=== PATIENT | male | born 1965 | race Caucasian/White ===

== ENCOUNTER 2022-05-02 19:21 | Emergency (ER) | payer OTHER ==
[2022-05-02 20:00] LABS: BASOPHIL 0.3 % (0-2); EOSINOPHIL 0.6 % (0-5); HCT 46.9 % (42.0-52.0); LYMPHOCYTE 22.8 % (15-48); MCH 30.9 pg (25.0-31.0); MCHC 34.1 g/dL (32.0-36.0); MCV 90.5 fL (78.0-100.0); MONOCYTE 7.8 % (0-12); MPV 8.5 fL (6.0-9.5); NEUTROPHIL 68.2 % (41-80); NRBC 0; PLT 228 K/uL (150-400); RBC 5.18 M/uL (4.70-6.00); RDW 13.6 % (11.5-14.0); WBC 6.4 K/uL (4.0-10.5)
[2022-05-02 20:05] LABS: INR 1.02 (0.9-1.2); PROTHROMBIN TIME 13.1 SECONDS (11.9-13.9); PTT 30.2 SECONDS (24.9-34.6)
[2022-05-02 20:09] LABS: ALBUMIN 3.8 g/dL (3.4-5.0); BILIRUBIN - TOTAL 0.4 mg/dL (0.2-1.0); BUN/CREAT RATIO (CALC) 10.4 RATIO; CREATININE 1.34 mg/dL (0.67-1.17); GLOBULIN (CALCULATION) 3.3 g/dL; POTASSIUM 4.3 mmol/L (3.5-5.1); TOTAL PROTEIN 7.1 g/dL (6.4-8.2)
[2022-05-02 21:03] LABS: CORONAVIRUS 2019 SARS-COV-2 NEGATIVE (NEGATIVE); INFLUENZA A NAA NEGATIVE (NEGATIVE)
[2022-05-02] MEDS ORDERED: NORCO 5-325 TA1 EACH PO (21:16)
[2022-05-02] MEDS ORDERED: ONDANSETRON ODT4 MG PO (21:16)
== END 2022-05-02 21:50 | disposition home or self-care (01) ==
LOC: FER 19:21
PROVIDERS: Emergency Medicine
DX: S82.852A Displaced trimalleolar fracture of left lower leg, initial encounter for closed fracture (principal); J45.909 Unspecified asthma, uncomplicated; F17.200 Nicotine dependence, unspecified, uncomplicated; X50.1XXA Overexertion from prolonged static or awkward postures, initial encounter; Y92.89 Other specified places as the place of occurrence of the external cause; Y99.0 Civilian activity done for income or pay; Z20.822 Contact with and (suspected) exposure to COVID-19
CPT/HCPCS: 36415; 73560; 73590; 73600; 73610; 73620; 80053; 85025; 85610; 85730; J1170; J7030; U0002